=== PATIENT | male | born 1960 | race Caucasian/White ===

== ENCOUNTER 2024-01-07 16:52 | Emergency (ER) | payer SELFPAY ==
[2024-01-07 17:14] VITALS: BP 115/65; PULSE 72; RESP 18; TEMP 36.5; O2SAT 97; BMI 21.5
--- NOTE | 2024-01-07 17:19 | DI.RAD.S_ITS ---
PROCEDURE: XR CHEST 1V INDICATIONS: chest pain TECHNIQUE: One view of the chest was acquired. COMPARISON: [facility], CT, CT LOW DOSE LUNG CA SCREENING, 10/26/2023, 14:53. FINDINGS: Surgical changes and devices: None. Lungs and pleura: Lungs are clear. No pleural effusions or pneumothorax. Mediastinum: Mediastinal contours appear normal. Heart size is normal. Bones and chest wall: No suspicious bony lesions. Overlying soft tissues appear unremarkable. IMPRESSION: No acute pulmonary process. Dictated by: Mayela Wesley M.D. on 01/07/2024 at 18:43 Approved by: Mayela Wesley M.D. on 01/07/2024 at 18:43
--- NOTE | 2024-01-07 17:25 | EKG_ITS ---
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
[2024-01-07 17:43] LABS: Add Manual Diff / Slide Review NO; Basophils Absolute Auto 100 /uL (0-100); Basophils Percent Auto 0.7 % (0-2); Eosinophils Absolute Auto 100 /uL (0-450); Eosinophils Percent Auto 1.1 % (2-4); Hematocrit 42.7 % (41-53); Hemoglobin 14.3 g/dL (13.5-17.5); Lymphocytes Absolute Auto 1400 /uL (1100-4500); Lymphocytes Percent Auto 14.3 % (25-40); Mean Corpuscular HGB Conc 33.4 % (30-36); Mean Corpuscular Hemoglobin 30.3 PG (26-34); Mean Corpuscular Volume 90.9 fL (80-100); Monocytes Absolute Auto 500 /uL (0-900); Monocytes Percent Auto 5.1 % (3-14); Neutrophils Absolute Auto 8000 /uL (1500-7000); Neutrophils Percent Auto 78.8 % (50-75); Platelet Count 214 X10^3/uL (150-400); Red Cell Distribution Width 12.8 % (11.6-14.8); White Blood Cell Count 10.1 X10^3/uL (4.5-11.0)
[2024-01-07 17:47] LABS: Prothrombin Time 11.1 SECONDS (9.4-12.5)
[2024-01-07 17:49] LABS: PTT Partial Thromboplastin Tim 31 SECONDS (25.1-36.5)
[2024-01-07 18:13] LABS: Alanine Aminotransferase 21 IU/L (<50); Albumin 4.4 g/dL (3.5-5.0); Albumin Globulin Ratio 1.4 (1.0-2.8); Alkaline Phosphatase 60 U/L (38-126); Aspartate Aminotransferase 29 IU/L (17-59); Bilirubin Total 0.5 mg/dL (0.2-1.3); Blood Urea Nitrogen 20 mg/dL (9-20); Calcium 9.8 mg/dL (8.4-10.2); Carbon Dioxide 28 mmol/L (22-32); Chloride 103 mmol/L (98-107); Creatine Kinase 118 U/L (55-170); Estimated Glomerular Filt Rate > 60 mL/min (>60); Globulin 3.2 g/dL (1.7-4.1); Glucose 115 mg/dL (80-110); HEMOLYSIS < 15 (0-50); Lipase 101 U/L (23-300); Magnesium 1.9 mg/dL (1.6-2.3); Potassium 4.5 mmol/L (3.4-5.1); Sodium 134 mmol/L (137-145); Total Protein 7.6 g/dL (6.3-8.2)
[2024-01-07 18:24] LABS: NT-proBNP (BNP-Adult 18+) 34 pg/mL (<125); Troponin I < 0.012 ng/mL (0.01-0.034)
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
[2024-01-07 19:04] VITALS: BP 114/65; PULSE 70; RESP 17; O2SAT 96
== END 2024-01-07 19:06 | disposition home or self-care (01) ==
PROVIDERS: Emergency Medicine; Emergency Provider Emergency Medicine
DX: I95.1 Orthostatic hypotension (principal); R07.9 Chest pain, unspecified
CPT/HCPCS: 36415; 71045; 80053; 82550; 83690; 83735; 83880; 84484; 85025; 85610; 85730; 93005; 99283; 99284

== ENCOUNTER 2024-04-03 01:12 | Emergency (ER) | payer OTHER, SELFPAY ==
[2024-04-03 01:20] VITALS: BP 138/83; PULSE 75; RESP 16; TEMP 36.6; O2SAT 96; BMI 20.7
--- NOTE | 2024-04-03 01:26 | EKG_ITS ---
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
--- NOTE | 2024-04-03 05:50 | ED.GENADULT ---
HPI - General Adult General Chief complaint: Syncope Stated complaint: syncope Source: patient and EMS Mode of arrival: EMS Related Data Allergies Allergy/AdvReac Type Severity Reaction Status Date / Time No Known Drug Allergies Allergy Verified 01/07/24 17:19 Patient History Social History Smoking Status: Current every day smoker Smoking Status: Current every day smoker tobacco type: cigarettes alcohol intake frequency: 0-2 drinks per day Exam Initial Vital Signs Initial Vital Signs: Vital Signs Temperature 97.8 F 04/03/24 01:20 Pulse Rate 75 04/03/24 01:20 Respiratory Rate 16 04/03/24 01:20 Blood Pressure 138/83 04/03/24 01:20 Pulse Oximetry 96 04/03/24 01:20 Oxygen Delivery Method Room Air 04/03/24 01:20 Course Orders Ordered: ED Orders 04/03/24 01:17 EKG-12 Lead Stat Vital Signs Vital signs: Vital Signs - 8 hr 04/03/24 01:20 Temperature 97.8 F Pulse Rate 75 Respiratory Rate 16 Blood Pressure 138/83 Pulse Oximetry 96 Oxygen Delivery Method Room Air Medical Decision Making ECG Data Attestation: I personally reviewed and interpreted this ECG as follows: Interpretation: Sinus rhythm rate of 69 CO 130 QRS of 122 QTC of 417. Discharge Plan Departure Patient Disposition: Left Without Being Seen Clinical Impression: Patient left without being seen
== END 2024-04-03 01:59 | disposition left against medical advice (07) ==
PROVIDERS: Emergency Provider Emergency Medicine
DX: R55 Syncope and collapse (principal); S09.90XA Unspecified injury of head, initial encounter
CPT/HCPCS: 93005; 93010; 99281